=== PATIENT | female | born 1985 | race Asian ===

== ENCOUNTER 2018-02-06 23:17 | Outpatient (CLI) | payer OTHER ==
[2018-02-07] MEDS ORDERED: ACETAMINOPHEN 500 MG TAB PO (00:30)
[2018-02-07] MEDS: ACETAMINOPHEN 500 MG TAB PO (01:03)
[2018-02-07 01:12] LABS: ADD MAN DIFF? NO
[2018-02-07 01:14] LABS: BASOPHIL # 0.1 10^3/ul (0.0-0.1); BASOPHILS % 0.5 % (0.0-2.0); EOSINOPHILS # 0.3 10^3/ul (0.0-0.5); EOSINOPHILS % 2.6 % (0.0-7.0); HEMATOCRIT 33.8 % (37.0-47.0); HEMOGLOBIN 11.3 g/dl (12.0-16.0); LYMPHOCYTES # 2.3 10^3/ul (0.8-2.9); LYMPHOCYTES % 23.2 % (15.0-51.0); MEAN CORPUSCULAR HEMOGLOBIN 27.8 pg (29.0-33.0); MEAN CORPUSCULAR HGB CONC 33.4 g/dl (32.0-37.0); MEAN PLATELET VOLUME 9.1 fl (7.4-10.4); MONOCYTES % 10.1 % (0.0-11.0); NEUTROPHIL # 6.3 10^3/ul (1.6-7.5); NEUTROPHILS % 62.6 % (39.0-77.0); PLATELET COUNT 293 10^3/UL (140-415); RED BLOOD COUNT 4.07 10^6/ul (4.20-5.40); RED CELL DISTRIBUTION WIDTH 13.9 % (11.5-14.5)
[2018-02-07 01:33] LABS: ADD UMIC YES; UR AMORPHOUS CRYSTAL FEW /HPF (NONE SEEN); UR ASCORBIC ACID NEGATIVE (NEGATIVE); UR BACTERIA FEW /HPF (NONE SEEN); UR BILIRUBIN (Dip) NEGATIVE (NEGATIVE); UR BLOOD (Dip) NEGATIVE (NEGATIVE); UR CLARITY CLOUDY (CLEAR); UR COLOR YELLOW (YELLOW); UR GLUCOSE (Dip) NEGATIVE (NEGATIVE); UR KETONES (Dip) NEGATIVE (NEGATIVE); UR LEUKOCYTE ESTERASE (Dip) 1+ Leu/ul (NEGATIVE); UR NITRITE (Dip) POSITIVE (NEGATIVE); UR RBC 2 /HPF (0-5); UR SQUAMOUS EPITHELIAL CELL MODERATE /HPF (FEW); UR TOTAL PROTEIN (Dip) NEGATIVE (NEGATIVE); UR UROBILINOGEN (Dip) NEGATIVE (NEGATIVE); UR WBC 68 /HPF (0-5)
[2018-02-07 02:03] LABS: AMPHETAMINE/METHAMPHETAMINE NEGATIVE (NEGATIVE); BARBITURATES NEGATIVE (NEGATIVE); BENZODIAZEPINES NEGATIVE (NEGATIVE); CANNABINOIDS NEGATIVE (NEGATIVE); COCAINE NEGATIVE (NEGATIVE); OPIATES NEGATIVE (NEGATIVE)
== END 2018-02-07 05:53 | disposition home or self-care (01) ==
LOC: OBT 23:17 → L-D 23:19
DX: O9A.213 Injury, poisoning and certain other consequences of external causes complicating pregnancy, third trimester (principal); Z3A.35 35 weeks gestation of pregnancy; V43.62XA Car passenger injured in collision with other type car in traffic accident, initial encounter; Y92.410 Unspecified street and highway as the place of occurrence of the external cause
CPT/HCPCS: 76818; 80307; 81001; 85025; 85460; 86850; 86900; 86901

== ENCOUNTER 2018-03-06 12:34 | Inpatient (IN) | payer OTHER ==
[2018-03-06 16:49] LABS: ADD MAN DIFF? NO
[2018-03-06 16:51] LABS: WHITE BLOOD COUNT 11.9 10^3/ul (4.8-10.8)
[2018-03-06 16:51] LABS: BASOPHILS % 0.3 % (0.0-2.0); EOSINOPHILS # 0.2 10^3/ul (0.0-0.5); EOSINOPHILS % 1.4 % (0.0-7.0); HEMATOCRIT 38.8 % (37.0-47.0); HEMOGLOBIN 12.8 g/dl (12.0-16.0); LYMPHOCYTES # 2.3 10^3/ul (0.8-2.9); LYMPHOCYTES % 19.1 % (15.0-51.0); MEAN CORPUSCULAR HEMOGLOBIN 27.5 pg (29.0-33.0); MEAN CORPUSCULAR VOLUME 83.4 fl (82.0-101.0); MEAN PLATELET VOLUME 9.6 fl (7.4-10.4); MONOCYTE # 0.8 10^3/ul (0.3-0.9); MONOCYTES % 6.8 % (0.0-11.0); NEUTROPHIL # 8.5 10^3/ul (1.6-7.5); NEUTROPHILS % 71.6 % (39.0-77.0); PLATELET COUNT 305 10^3/UL (140-415); RED BLOOD COUNT 4.65 10^6/ul (4.20-5.40); RED CELL DISTRIBUTION WIDTH 15.1 % (11.5-14.5)
[2018-03-06 16:55] LABS: INR 0.86; PROTIME 11.8 Sec (11.9-14.9); PT RATIO 0.9
[2018-03-06 16:56] LABS: PARTIAL THROMBOPLASTIN TIME 27.3 Sec (23.0-35.0)
[2018-03-06] MEDS ORDERED: BUTORPHANOL 2 MG INJ IV (17:00)
[2018-03-06] MEDS ORDERED: CARBOPROST 250 MCG INJ IM (17:00)
[2018-03-06] MEDS ORDERED: LIDOCAINE 1% (MPF) 30 ML INJ INJ (17:00)
[2018-03-06] MEDS ORDERED: MISOPROSTOL 200 MCG TAB PR (17:00)
[2018-03-06] MEDS ORDERED: BUTORPHANOL 1 MG INJ IV (17:00)
[2018-03-06] MEDS ORDERED: METHYLERGONOVINE 0.2 MG INJ IM (17:00)
[2018-03-06] MEDS ORDERED: OXYTOCIN 30 UNITS/LR 500 ML IV ×2 (17:00)
[2018-03-06 17:27] LABS: HEPATITIS B SURFACE ANTIGEN NEGATIVE (NEGATIVE)
[2018-03-06] MEDS: LACTATED RINGER'S 1,000 ML IV ×3 (18:28→23:35)
[2018-03-06 18:45] LABS: ADD UMIC YES; UR ASCORBIC ACID NEGATIVE (NEGATIVE); UR BACTERIA FEW /HPF (NONE SEEN); UR BILIRUBIN (Dip) NEGATIVE (NEGATIVE); UR BLOOD (Dip) 2+ mg/dL (NEGATIVE); UR CLARITY SLIGHTLY CLOUDY (CLEAR); UR COLOR YELLOW (YELLOW); UR GLUCOSE (Dip) NEGATIVE (NEGATIVE); UR KETONES (Dip) 1+ mg/dL (NEGATIVE); UR LEUKOCYTE ESTERASE (Dip) TRACE Leu/ul (NEGATIVE); UR NITRITE (Dip) POSITIVE (NEGATIVE); UR RBC 1 /HPF (0-5); UR SQUAMOUS EPITHELIAL CELL FEW /HPF (FEW); UR TOTAL PROTEIN (Dip) NEGATIVE (NEGATIVE); UR UROBILINOGEN (Dip) NEGATIVE (NEGATIVE); UR WBC 12 /HPF (0-5)
[2018-03-06 18:59] LABS: AMPHETAMINE/METHAMPHETAMINE Negative (NEGATIVE); BENZODIAZEPINES Negative (NEGATIVE); CANNABINOIDS Negative (NEGATIVE); COCAINE Negative (NEGATIVE); OPIATES Negative (NEGATIVE)
[2018-03-06 19:21] LABS: BARBITURATES Negative (NEGATIVE)
[2018-03-06] MEDS ORDERED: KETOROLAC 30 MG INJ IV (22:30)
[2018-03-06] MEDS ORDERED: HYDROmorphONE 0.5 MG/0.5 ML SYG IV ×2 (22:30)
[2018-03-06] MEDS ORDERED: DIPHENHYDRAMINE 50 MG INJ IV (22:30)
[2018-03-06] MEDS ORDERED: NALOXONE (0.4 MG/ML) INJ IV (22:30)
[2018-03-06] MEDS ORDERED: ONDANSETRON 4 MG INJ IV (22:30)
[2018-03-07] MEDS: LACTATED RINGER'S 1,000 ML IV ×2 (01:17→05:51)
[2018-03-07] MEDS: MINERAL OIL LIGHT 10 ML VIAL TOP (03:30)
[2018-03-07] MEDS: FENTAnyl 2MCG/ML-ROPIV 0.2% 100 ML BAG EPI (08:17)
[2018-03-07] MEDS: OXYTOCIN 30 UNITS/LR 500 ML IV ×2 (08:18→14:14)
[2018-03-07] MEDS: IBUPROFEN 600 MG TAB PO ×2 (15:38→18:00)
[2018-03-07] MEDS: ACETAMINOPHEN 1000MG/100ML IV 100 ML IVPB (15:50)
[2018-03-07] MEDS ORDERED: HYDROCODONE/APAP (5/325) TAB PO ×2 (16:30)
[2018-03-07] MEDS ORDERED: CARBOPROST 250 MCG INJ IM (16:30)
[2018-03-07] MEDS ORDERED: MISOPROSTOL 200 MCG TAB PR (16:30)
[2018-03-07] MEDS ORDERED: ZOLPIDEM 5 MG TAB PO (16:30)
[2018-03-07] MEDS ORDERED: METHYLERGONOVINE 0.2 MG INJ IM (16:30)
[2018-03-07] MEDS ORDERED: OXYTOCIN 30 UNITS/LR 500 ML IV (16:30)
[2018-03-07] MEDS: BENZOCAINE 20% 56 ML SPRAY TOP (18:42)
[2018-03-07] MEDS: LACTATED RINGER'S 1,000 ML IV* (18:42)
[2018-03-07] MEDS: DIBUCAINE 1% 30 GM OINT TOP (18:43)
[2018-03-07] MEDS: WITCH HAZEL/GLYCERIN PAD PR (18:43)
[2018-03-07] MEDS: LANOLIN 7 GM TUBE TOP (18:43)
[2018-03-07] MEDS: CEPHALEXIN 500 MG CAP PO (18:43)
[2018-03-07 20:01] LABS: RAPID PLASMA REAGIN NONREACTIVE (NR)
[2018-03-07] MEDS: ACCU-CHEK XX (20:21)
[2018-03-07] MEDS: SENNA/DOCUSATE NA (8.6MG/50MG) TAB PO (21:17)
[2018-03-07] MEDS: MAGNESIUM HYDROXIDE 30ML CUP PO (21:17)
[2018-03-08] MEDS: LACTATED RINGER'S 1,000 ML IV* ×2 (00:09→08:09)
[2018-03-08] MEDS: IBUPROFEN 600 MG TAB PO ×5 (00:34→23:58)
[2018-03-08] MEDS: CEPHALEXIN 500 MG CAP PO ×5 (00:34→23:58)
[2018-03-08] MEDS: ACCU-CHEK XX ×2 (07:30→17:35)
[2018-03-08 08:42] LABS: ADD MAN DIFF? NO
[2018-03-08 08:49] LABS: BASOPHIL # 0.1 10^3/ul (0.0-0.1); BASOPHILS % 0.4 % (0.0-2.0); EOSINOPHILS # 0.3 10^3/ul (0.0-0.5); EOSINOPHILS % 2.6 % (0.0-7.0); HEMATOCRIT 33.1 % (37.0-47.0); HEMOGLOBIN 10.8 g/dl (12.0-16.0); LYMPHOCYTES # 2.4 10^3/ul (0.8-2.9); LYMPHOCYTES % 21.7 % (15.0-51.0); MEAN CORPUSCULAR HEMOGLOBIN 27.5 pg (29.0-33.0); MEAN CORPUSCULAR HGB CONC 32.6 g/dl (32.0-37.0); MEAN CORPUSCULAR VOLUME 84.2 fl (82.0-101.0); MEAN PLATELET VOLUME 9.6 fl (7.4-10.4); MONOCYTE # 1.1 10^3/ul (0.3-0.9); MONOCYTES % 10.1 % (0.0-11.0); NEUTROPHIL # 7.3 10^3/ul (1.6-7.5); NEUTROPHILS % 64.7 % (39.0-77.0); PLATELET COUNT 270 10^3/UL (140-415); RED BLOOD COUNT 3.93 10^6/ul (4.20-5.40); RED CELL DISTRIBUTION WIDTH 15.4 % (11.5-14.5)
[2018-03-08 08:49] LABS: WHITE BLOOD COUNT 11.2 10^3/ul (4.8-10.8)
[2018-03-08] MEDS: MAGNESIUM HYDROXIDE 30ML CUP PO ×2 (09:07→21:00)
[2018-03-08] MEDS: SENNA/DOCUSATE NA (8.6MG/50MG) TAB PO ×2 (09:07→21:00)
[2018-03-08] MEDS ORDERED: GLUCOSE GEL 15 GRAM TUBE PO ×2 (12:30)
[2018-03-08] MEDS ORDERED: GLUCOSE GEL 15 GRAM TUBE BUCCAL (12:30)
[2018-03-08] MEDS ORDERED: ACCU-CHEK XX (12:30)
[2018-03-08] MEDS ORDERED: GLUCAGON 1 MG INJ IM (12:30)
[2018-03-08] MEDS ORDERED: DEXTROSE 50% 50 ML SYRINGE IV ×2 (12:30)
[2018-03-08] MEDS: metFORMIN (XR) 500 MG TAB PO (15:05)
[2018-03-08] MEDS ORDERED: metFORMIN (XR) 500 MG TAB PO ×2 (17:35)
[2018-03-09] MEDS: CEPHALEXIN 500 MG CAP PO ×2 (05:54→12:48)
[2018-03-09] MEDS: IBUPROFEN 600 MG TAB PO ×2 (05:55→12:47)
[2018-03-09] MEDS: SENNA/DOCUSATE NA (8.6MG/50MG) TAB PO (08:46)
[2018-03-09] MEDS: MAGNESIUM HYDROXIDE 30ML CUP PO (08:46)
[2018-03-09] MEDS: metFORMIN (XR) 500 MG TAB PO (08:46)
[2018-03-09] MEDS: MEASLES,MUMPS,RUBELLA VACCINE INJ SC* (09:00)
[2018-03-09] MEDS: DIPHTH/TET/ACEL PERTUSS (ADULT) 0.5 ML VIAL IM* (09:00)
[2018-03-09] MEDS: VARICELLA VACCINE LIVE/PF 1,350 UNIT/0.5 ML ML SC* (09:00)
== END 2018-03-09 15:40 | disposition home or self-care (01) | DRG 806 ==
LOC: OBT 12:34 → PP1 03-07 16:27 → L-D 12:34 → OBT 14:01 → L-D 14:00
PROVIDERS: Obstetrics & Gynecology
PROC: 10D07Z6 Extraction of Products of Conception, Vacuum, Via Natural or Artificial Opening (ICD-10-PCS; principal; 2018-03-07)
DX: O24.113 Pre-existing type 2 diabetes mellitus, in pregnancy, third trimester (principal); O23.43 Unspecified infection of urinary tract in pregnancy, third trimester; Z37.0 Single live birth; O76 Abnormality in fetal heart rate and rhythm complicating labor and delivery; Z3A.39 39 weeks gestation of pregnancy; E11.9 Type 2 diabetes mellitus without complications
CPT/HCPCS: 62319; 76816; 76818; 80307; 81001; 82962; 85025; 85610; 85730; 86592; 86850; 86900; 86901; 87086; 87340; 90716; 99464